=== PATIENT | male | born 1965 | race Caucasian/White ===

== ENCOUNTER 2017-07-23 13:29 | Emergency (ER) | payer SELFPAY ==
[2017-07-23] MEDS ORDERED: ACETAMINOPHEN 325 MG TABLET PO ONE (14:24)
--- NOTE | 2017-07-23 14:52 | RADIOLOGY REPORT (SQ) ---
EXAM DESCRIPTION: ANKLE RIGHT COMPLETE COMPLETED DATE/TIME: 07/23/2017 2:32 pm REASON FOR STUDY: pain COMPARISON: None. NUMBER OF VIEWS: Three views. TECHNIQUE: AP, lateral, and oblique radiographic images acquired of the right ankle. LIMITATIONS: None. FINDINGS: MINERALIZATION: Normal. BONES: Spiral nondisplaced acute or subacute fracture distal right tibial metaphysis. This is best s hown on the AP view marked with an arrow. JOINTS: Tibiotalar joint large effusion SOFT TISSUES: Diffuse right distal lower leg and ankle soft tissue swelling. No foreign body. OTHER: Small plantar and dorsal calcaneal spurs. . IMPRESSION: Acute or early subacute nondisplaced fracture, right distal tibial metaphysis. Ankle joint effusion. Diffuse soft tissue swelling. TECHNICAL DOCUMENTATION: JOB ID: [id number] [employer]- All Rights Reserved
--- NOTE | 2017-07-23 15:16 | ER Document Report ---
HPI - HPI Patient complains to provider of: Ankle pain Pain Level: 4 Context: Patient is a 51-year-old male presents emergency room complaining of right ankle pain. Patient states that he rolled it 4 days ago and still having bruising and pain in the medial aspect of his ankle. States he is able to move it and only hurts when he applies pressure. - MUSCULOSKELETAL Musculoskeletal: REPORTS: Extremity pain Past Medical History - Social History Smoking Status: Current Every Day Smoker Chew tobacco use (# tins/day): No Frequency of alcohol use: Rare Drug Abuse: None Family History: Reviewed & Not Pertinent Patient has suicidal ideation: No Patient has homicidal ideation: No - Past Medical History Cardiac Medical History: Reports: Hx Hypertension - pt reports no medications Renal/ Medical History: Denies: Hx Peritoneal Dialysis Past Surgical History: Reports: Hx Orthopedic Surgery - back, right shoulder Vertical Provider Document - CONSTITUTIONAL Agree With Documented VS: Yes Notes: PHYSICAL EXAM GENERAL: Alert, interacts well. EXTREMITIES: Moves all 4 extremities spontaneously, edema and ecchymosis over the medial aspect of the right ankle nontender to palpation full range of motion knee nontender full range of motion toes nontender full range of motion cap refill less than 2 seconds in all lower extremity digits. No edema,dorsalis pedis pulses 2/4 bilaterally. No cyanosis. NEUROLOGICAL: Alert and oriented x4. Normal speech. PSYCH: Normal affect, normal mood. SKIN: Warm, dry, normal turgor. No rashes or lesions noted. - RESPIRATORY O2 Sat by Pulse Oximetry: 95 Course - Re-evaluation Re-evalutation: 07/23/17 15:26 Patient is a 51-year-old male is hemodynamically stable, no acute distress afebrile. Evidence of an acute distal tibial fracture with surrounding soft tissue swelling. Patient placed in a posterior leg splint reeducated on use of crutches and discussed with him to follow-up with orthopedics. He is declining to go home with any narcotic pain medication at this time. Patient given strict return precautions and otherwise stable for discharge home. - Vital Signs Vital signs: Temp Pulse Resp BP Pulse Ox 98.0 F 106 H 20 186/90 H 95 07/23/17 13:40 07/23/17 13:40 07/23/17 13:40 07/23/17 13:40 01/08/18 13:40 - Diagnostic Test Radiology reviewed: Image reviewed, Reports reviewed Procedures - Immobilization Right Ankle Pre-Proc Neuro Vasc Exam: Normal Immobilizer type: Short Leg Posterior Performed by: PCT Post-Proc Neuro Vasc Exam: Normal, Unchanged from pre-exam Alignment checked and good: Yes Discharge - Discharge Clinical Impression: Fracture of distal end of tibia Qualifiers: Encounter type: initial encounter Fracture type: closed Fracture morphology: unspecified fracture morphology Laterality: right Qualified Code(s): S82.301A - Unspecified fracture of lower end of right tibia, initial encounter for closed fracture Condition: Good Disposition: HOME, SELF-CARE Instructions: Fractured Tibia (OM), Use of Crutches (OM) Additional Instructions: You have broken the end of your tibia which is the bone on the inside of your ankle. You are to be nonweight bearing on this leg until you follow-up with orthopedics. Please call the the numbers listed on your discharge paperwork. Referrals: DONOVAN LINARES, [ACTIVE STAFF] - Follow up tomorrow
[2017-07-23 16:08] VITALS: BP 144/80
== END 2017-07-23 16:08 | disposition home or self-care (01) ==
LOC: ER 13:29
PROC: 2W3QX1Z Immobilization of Right Lower Leg using Splint (ICD-10-PCS; principal; 2017-07-23)
DX: S82.301A Unspecified fracture of lower end of right tibia, initial encounter for closed fracture (principal); F17.200 Nicotine dependence, unspecified, uncomplicated; X50.0XXA Overexertion from strenuous movement or load, initial encounter
CPT/HCPCS: 99283